=== PATIENT | male | born 1950 ===

== ENCOUNTER 2020-11-11 07:51 | Outpatient (CLI) | payer OTHER | END 2020-11-11 07:54 | disposition home or self-care (01) | LOC: SONOGRAMA 07:51 | PROVIDERS: ATTEND Pathology Anatomic Pathology & Clinical Pathology | DX: R59.0 Localized enlarged lymph nodes (principal) ==

== ENCOUNTER 2021-06-12 09:38 | Outpatient (CLI) | payer OTHER | END 2021-06-12 14:19 | disposition home or self-care (01) | LOC: SONOGRAMA 09:38 | PROVIDERS: ATTEND Pathology Anatomic Pathology & Clinical Pathology | DX: R59.0 Localized enlarged lymph nodes (principal) ==